=== PATIENT | female | born 1965 | race Caucasian/White ===

== ENCOUNTER 2023-12-08 18:02 | Emergency (ER) | payer BC ==
[2023-12-08 18:12] VITALS: BP 110/76; PULSE 63; RESP 18; TEMP 98.6; BMI 20.1
== END 2023-12-08 19:43 | disposition home or self-care (01) ==
LOC: FER 18:02
DX: S69.91XA Unspecified injury of right wrist, hand and finger(s), initial encounter (principal); W01.0XXA Fall on same level from slipping, tripping and stumbling without subsequent striking against object, initial encounter
CPT/HCPCS: 73110-TC-RT-FY; 99283-25